=== PATIENT | female | born 1990 | race Caucasian/White ===

== ENCOUNTER 2018-11-09 11:00 | Emergency (ER) | payer OTHER ==
[~2018-11-09] VITALS: Ht 160 cm; Wt 50.8 kg
[~2018-11-09 11:00] MED LIST: Ventolin/Prove6.7 GM INH
[2018-11-09] MEDS ORDERED: ALBU90OI INH (13:36)
[2018-11-09] MEDS ORDERED: PRED10 PO (13:36)
== END 2018-11-09 13:41 | disposition home or self-care (01) ==
LOC: ER 11:00
DX: J45.909 Unspecified asthma, uncomplicated (principal); Z87.891 Personal history of nicotine dependence; Z91.048 Other nonmedicinal substance allergy status
CPT/HCPCS: 71046; 94640; 99285-25; J7512